=== PATIENT | female | born 1935 | race American Indian/Alaskan Native ===

== ENCOUNTER 2016-10-04 09:17 | Outpatient (CLI) | payer MEDICARE, OTHER ==
--- NOTE | 2016-10-04 10:29 | Mammography Report ---
Bilateral mammogram: Compared to 09/01/15. CAD study utilized. Findings: Predominance of adipose tissue bilaterally. No mass or microcalcification. Benign axillary nodes. Suspected new focal architectural distortion upper anterior left breast. Impression: Focal architectural distortion upper anterior left breast. Recommend spot mag and if necessary sonographic examination. BI-RADS CATEGORY: 0 = Needs additional imaging evaluation ACR BI-RADS MAMMOGRAPHIC CODES: 0 = Needs additional imaging evaluation; 1 = Negative; 2 = Benign; 3 = Probably benign; 4 = Suspicious; 5 = Malignant; 6 = Known biopsy-proven malignancy COMMENT: 1. Dense breast tissue, i.e., adenosis, fibrocystic changes, etc., may obscure an underlying neoplasm. 2. Approximately 10% of cancers are not detected with mammography. 3. A negative mammography report should not delay biopsy if a clinically suspicious mass is present.
== END 2016-10-04 09:18 | disposition home or self-care (01) ==
LOC: SPVWC 09:17
PROVIDERS: ATTEND Internal Medicine
DX: Z12.31 Encounter for screening mammogram for malignant neoplasm of breast (principal)
CPT/HCPCS: 77067; G0202

== ENCOUNTER 2018-01-04 11:42 | Outpatient (CLI) | payer MEDICARE, OTHER ==
--- NOTE | 2018-01-04 14:42 | XRay Report ---
CERVICAL SPINE SERIES THREE VIEWS: 01/04/18 11:42:00 CLINICAL: Spondylosis. COMPARISON: Cervical spine MRI 09/28/11 FINDINGS: Normal vertebral body alignment through T1. Exaggerated cervical lordosis. Moderate degenerative disc disease at C3-4, C4-5 and C5-6 where there are anterior and posterior osteophytes. Decreased height and increased density of the C4 and C5 vertebral bodies. Disc space narrowing is most pronounced at C4-5. Normal odontoid and C1. No fractures. Normal soft tissues. IMPRESSION: Moderate degenerative disc disease from C3-4 through C5-6.
== END 2018-01-04 11:43 | disposition home or self-care (01) ==
LOC: SPVIMAG 11:42
PROVIDERS: ATTEND Internal Medicine
DX: M47.892 Other spondylosis, cervical region (principal)
CPT/HCPCS: 72040